=== PATIENT | male | born 1955 | race Caucasian/White ===

== ENCOUNTER → 2019-04-20 | Outpatient (CLI) | payer OTHER | END | disposition home or self-care (01) | LOC: RAH 10:02 | PROVIDERS: ATTEND Nurse Practitioner Adult Health | DX: Z13.6 Encounter for screening for cardiovascular disorders (principal) | CPT/HCPCS: 75571 ==

== ENCOUNTER 2022-07-24 16:13 | Inpatient (IN) | payer MEDICARE ==
[~2022-07-24] VITALS: Ht 180.3 cm; Wt 95.3 kg
[2022-07-24] MEDS ORDERED: MORPHINE 4 MG SYG IM ONE (20:30)
[2022-07-24 20:45] LABS: BASOPHILS % (AUTO) 0.5 % (0.0-5.0); EOSINOPHILS % (AUTO) 3.2 % (0.0-8.0); HEMATOCRIT 44.3 % (42-54); LYMPHOCYTES % (AUTO) 17.5 % (21.0-51.0); MEAN CORPUSCULAR HEMOGLOBIN 30.2 pg (27.0-33.0); MEAN CORPUSCULAR HGB CONC 33.4 g/dL (32.0-36.0); MEAN CORPUSCULAR VOLUME 90.4 fL (79-99); MONOCYTES % (AUTO) 10.5 % (3.0-13.0); NEUTROPHILS % (AUTO) 67.9 % (40.0-77.0); PLATELET COUNT (AUTO) 191 K/uL (130-400); WHITE BLOOD COUNT (AUTO) 9.4 K/uL (4.8-10.8)
[2022-07-24 20:53] LABS: POTASSIUM 3.7 mmol/L (3.5-5.1)
[2022-07-24 20:58] LABS: ALBUMIN 3.6 g/dL (3.5-5.0); INR 0.96 (0.85-1.15); PROTHROMBIN TIME 10.5 SEC (9.6-11.6); TOTAL PROTEIN, SERUM 7.4 g/dL (6.0-8.3)
[2022-07-24] MEDS ORDERED: IOHEXOL 350 MG/ML 100ML INFUS..BTL IV ONE (22:11)
[2022-07-25] MEDS ORDERED: TRAM50TA4 PO (00:47)
[2022-07-25] MEDS ORDERED: MORPHINE 2 MG SYG IM ONE (01:00)
[2022-07-25] MEDS ORDERED: ACETAMINOPHEN 325 MG TAB PO PRN ×2 (08:30)
[2022-07-25] MEDS ORDERED: ONDANSETRON 4MG INJ IVP ONE (08:30)
[2022-07-25] MEDS ORDERED: ONDANSETRON 4MG INJ IV PRN (08:30)
[2022-07-25] MEDS ORDERED: MORPHINE 2 MG SYG IV PRN (08:30)
[2022-07-25] MEDS ORDERED: MORPHINE 2 MG SYG IVP PRN (08:30)
[2022-07-25] MEDS ORDERED: FAMOTIDINE 20MG VIAL IV SCH (09:00)
[2022-07-25] MEDS ORDERED: LOSARTAN 25 MG TABLET PO ONE (09:58)
[2022-07-25 10:07] VITALS: BP 139/74
[2022-07-25 10:46] LABS: BASOPHILS % (AUTO) 0.5 % (0.0-5.0); HEMATOCRIT 43.2 % (42-54); LYMPHOCYTES % (AUTO) 11.9 % (21.0-51.0); MEAN CORPUSCULAR HGB CONC 32.4 g/dL (32.0-36.0); MEAN CORPUSCULAR VOLUME 92.5 fL (79-99); MONOCYTES % (AUTO) 9.4 % (3.0-13.0); NEUTROPHILS % (AUTO) 75.8 % (40.0-77.0); PLATELET COUNT (AUTO) 204 K/uL (130-400); RED BLOOD CELL COUNT(AUTO) 4.67 MIL/uL (4.50-6.20); RED CELL DISTRIBUTION WIDTH 13.1 % (11.0-15.5); WHITE BLOOD COUNT (AUTO) 8.3 K/uL (4.8-10.8)
[2022-07-25 11:13] LABS: ALBUMIN 3.4 g/dL (3.5-5.0); CRP QUANTITATIVE 55.3 mg/L (0.00-9.0); POTASSIUM 3.8 mmol/L (3.5-5.1); TOTAL PROTEIN, SERUM 7.1 g/dL (6.0-8.3)
[2022-07-25 11:17] LABS: HEMOGLOBIN A1C 5.4 % (4.0-6.0)
[2022-07-25 11:35] LABS: APPEARANCE,URINE CLEAR (CLEAR); BILIRUBIN,URINE NEGATIVE (NEGATIVE); COLOR,URINE YELLOW (YELLOW); GLUCOSE, URINE (UA) NEGATIVE (NEGATIVE); KETONES,URINE NEGATIVE (NEGATIVE); LEUKOCYTE ESTERASE ,URINE NEGATIVE Leu/uL (NEGATIVE); NITRATE,URINE NEGATIVE (NEGATIVE); OCCULT BLOOD,URINE NEGATIVE (NEGATIVE); PH,URINE 5.5 (5.0-8.0); PROTEIN,URINE 10 mg/dL (NEGATIVE); UROBILINOGEN,URINE 0.2 mg/dL (0.2-1.0)
[2022-07-25 11:37] LABS: MUCUS,URINE RARE LPF (None Seen); RBC,URINE 0-1 /HPF (0-1); WBC,URINE 0-1 /HPF (0-1)
[2022-07-26] MEDS ORDERED: ATORVASTATIN 10 MG TABLET PO SCH (09:00)
[2022-07-26] MEDS ORDERED: LOSARTAN 25 MG TABLET PO SCH (09:00)
== END 2022-07-25 13:00 | disposition left against medical advice (07) | DRG 552 ==
LOC: EDH 16:13 → EDHIP 07-25 08:21
PROVIDERS: ADMIT Internal Medicine; ATTEND Internal Medicine
DX: S32.19XA Other fracture of sacrum, initial encounter for closed fracture (principal); S32.509A Unspecified fracture of unspecified pubis, initial encounter for closed fracture; K76.89 Other specified diseases of liver; E78.00 Pure hypercholesterolemia, unspecified; I10 Essential (primary) hypertension; E80.6 Other disorders of bilirubin metabolism; S30.22XA Contusion of scrotum and testes, initial encounter; W18.39XA Other fall on same level, initial encounter; Z53.29 Procedure and treatment not carried out because of patient's decision for other reasons; Y93.89 Activity, other specified; Y92.89 Other specified places as the place of occurrence of the external cause; Y99.8 Other external cause status; Z79.899 Other long term (current) drug therapy
CPT/HCPCS: 36415; 74178; 76870; 80053; 81001; 83036; 83880; 84145; 84443; 85025; 85610; 86140; 96372; 96374; 96375; G0378; J2270; J2405; J3490; Q9967

== ENCOUNTER → 2023-08-11 | Outpatient (CLI) | payer OTHER ==
[~2023-08-11] MED LIST: TRAM50TA4 PO
== END | disposition home or self-care (01) ==
LOC: OIH 13:37
PROVIDERS: ATTEND Nurse Practitioner Adult Health
DX: Z13.6 Encounter for screening for cardiovascular disorders (principal)
CPT/HCPCS: 75571